=== PATIENT | male | born 1995 | race Caucasian/White ===

== ENCOUNTER 2023-01-05 16:00 | Outpatient (RCR) | payer OTHER, SELFPAY ==
--- NOTE | 2022-12-12 16:59 | HP.PTEVAL_ITS ---
Patient's Visit Information TFIFANIE HOPKINS is a 27 year old M referred to Physical Therapy by YANICK LeyC with a diagnosis of MUSCLE STRAIN OF RIGHT GLUTEAL REFGION. Date of Evaluation: 12/12/22 Physical Therapist: Amador Goodwin, PT, Cert MDT, OCS - Visit Plan Frequency: 2x /Week Duration: 4 Weeks Plan: PT INTERVETIONS SKINNY EX'S ,DLS ,POSTURAL EX'S ,ANR STRETCHING , MANUAL THERAPY AND MODALTIES PRN - Subjective This 27 y/o male presents to physical therapy with right gluteal strain. Patient strain right glut lifting day after thanks ,at home Lifting a small weight. Pain intense and actually fell to ground. Patient unable stand up thus crawled to bedroom. Patient seen DR next day ,difficulty to sit down to drive. Patient had injection and prednisone /muscle relaxer . Patient had same thing in 2018 with possible sciatica. Patient was traveling in [place]. Location right glut ,LS. Aggravating factors left leg swing ,bending ,lifting, sitting. Getting in/out of truck Alleviating factors medication. Patient condition affects QOL and job demands. Coughing/sneezing -. Denies paresthesia/tingling - . No abnormal night pain. x-rays - spine . VOCATION: manager of operations. SOCAIL: single - Pain Right Buttocks Pain Intensity (Out of 10): 4 Pain Intensity Range: 10 Comment: bending worse - Objective POSTURE: mild forward posture. GAIT: reciprocal pattern. SYMMTRIES: align. PALAPTION: unremarkable. NEURO: burning glut ,denies paresthesia/tingling ,reflexes L3-4 ,L4-5 2/2. MMT: right quads 4-/5 due to + ANR ,otherwise hip flexion/abduction/Glut maximums ,hamstring 4/5. LUMBAR ROM: flexion severe loss pain ,extension WNL ,side glides WFL. FLEXABLITY: hamstrings mod loss + ANR - Special Tests L/S Slump test left side: Negative L/S Slump test right side: Positive L/S Left Straight Leg Raise: Positive L/S Right Straight Leg Raise: Positive - Balance/Special Test Scores Oswestry Low Back Score: 26 - Goals Goal 1:: Patient to be I with HEP for lumbar Goal Time Frame: 4-6 Weeks Goal 2:: Patient to improve posture/body mechanics 100% and lifting Goal Time Frame: 4-6 Weeks Goal 3:: Patient to demonstrate 75% improvement with decrease pain and improved function Goal Time Frame: 4-6 Weeks Goal 4:: Patient resolve ANR to improve flexion to ties shoes Goal Time Frame: 4-6 Weeks Goal 5:: Patient improve lumbar ROM FOR function of recovery to improve lift. Goal Time Frame: 4-6 Weeks Goal 6:: Patient to improve back oswestry by 5 points to improve QOL and return to lfting - Rehabilitation Potential Physical Therapy Diagnosis: This patient appears to have derangement above knee with disc involvement with pain worse with flexion better with extension and correction of posture ,thus benefit from skilled PT Rehabilitation Potential: Good - Anticipated Interventions Patient/Client Instruction: Educate patient on: Condition, Plan of Care For the Purpose of:: To decrease pain, To increase ROM, To improve muscle performance and motor function, To improve ability to perform ADL's, To increase tolerance to activity/condition/position, To improve performance and in dependence with ADL's, To improve ability of physical actions for home/community/work/leisure, To improve health of tissue, To decrease soft tissue restriction, To increase flexibility/ROM, To prevent re-injury Therapeutic Exercise to Include: Strength training, Body mechanics, Postural training, Flexibilty training For the Purpose of:: To decrease pain, To decrease swelling/inflammation, To increase ROM, To improve nutrient delivery to tissue, To increase oxygenation perfusion, To improve muscle performance and motor function, To increase tole kaitlin to activity/condition/position, To improve ability of physical actions for home/community/work/leisure, To improve health of tissue, To decrease soft tissue restriction, To increase flexibility/ROM, To prevent re-injury Manual Therapy Techniques to Include: Mobilization Comment: LUMBAR For the Purpose of:: To decrease pain, To increase ROM, To improve nutrient delivery to tissue, To increase oxygenation perfusion, To improve health of tissue, To decrease soft tissue restriction TENS: Yes IF ES: Yes Cryotherapy (ice pack, ice massage): Yes Thermo therapy (hot pack): Yes Ultrasound (thermal/non thermal): Yes For the Purpose of:: To decrease pain, To decrease swelling/inflammation, To increase ROM, To improve nutrient delivery to tissue, To increase oxygenation perfusion, To improve health of tissue, To decrease soft tissue restriction Thank you for the opportunity to evaluate your patient. For Medicare and Medicare HMO plans, please review the plan of care and approve it. It will need to be FAXED BACK to us at [phone] for Medicare purposes. For Medicare only, by signing this I certify the plan of care. Please let me know if there are questions or concerns regarding this plan of care. Physician Signature: Date:
--- NOTE | 2023-06-07 13:32 | HP.PTDCSUM ---
Discharge Summary D/C summary: It has been my pleasure to treat TIFFANIE HOPKINS referred by Karen Sanchez NP-C, with the diagnosis of MUSCLE STRAIN OF RIGHT GLUTEAL REGION for a total of 6 visit(s). Discharge Date: Please see the following information for a summary of their discharge status. Subjective Subjective: Doing well Pain Right Buttocks: Pain Intensity (Out of 10): 0 Overall Improvement % Improvement: 90 Objective Objective/Function: Doing great with joe and advances core work RETURN FUNCTION OF RECOVERY NO PAIN FULL ROM LUMBAR Goals Goal 1:: Patient to be I with HEP for lumbar Goal 2:: Patient to improve posture/body mechanics 100% and lifting Goal 3:: Patient to demonstrate 75% improvement with decrease pain and improved function Goal 4:: Patient resolve ANR to improve flexion to ties shoes Goal 5:: Patient improve lumbar ROM FOR function of recovery to improve lift. Goal 6:: Patient to improve back oswestry by 5 points to improve QOL and return to lfting Plan Plan: D/C D/C Information d/c sentence: If there are questions or concerns regarding this patient's physical therapy, please feel free to call me at [phone]. Thank you for the referral of this patient. Sincerely, Amador Goodwin, PT, Cert MDT, OCS Balance/Gait/Functional tests Balance/Special Test Scores Oswestry Low Back Score: 0
== END 2023-01-05 19:00 | disposition home or self-care (01) ==
LOC: PT 16:00
PROVIDERS: Referring Provider Internal Medicine; Visit Provider Internal Medicine
DX: S76.011D Strain of muscle, fascia and tendon of right hip, subsequent encounter (principal)
CPT/HCPCS: 97110; 97162; 97530

== ENCOUNTER → 2025-10-31 | Outpatient (CLI) | payer OTHER, SELFPAY ==
--- OUTSIDE RECORDS SUMMARY | 2025-10-31 12:08 | XMS RPT_ITS | CCD ---
Author Organization [facility] Care Team Providers Care Apron Man Name Role Phone BEL PITTMAN Attending Unavailable Unavailable Primary Care Provider Unavailabl e Ble Pittman NP Referring Unavailable Bel Pittman NP Attending Unavailable Care Physician, No Primary Primary Care Unava ilable Medications Completed/Discontinued Medications Medication Drug Class(es) Dates Sig (Normalized) Sig (Original) budesonide/formote rol fumarate (SYMBICORT INHALATION) (1 source) End: 11-29-2022 budesonide/formoter ol fumarate (SYMBICORT INHALATION) Inhale 2 Inhalation as instructed as needed. 0 11/29/2022 Discontinued Comment on above: Inhale 2 Inhalation as instructed as needed. Problems Problem Classification Problem Date Documented Da te Episodic/Chronic Sprains and strains (1 source) Strain of muscle of lower limb; Translations: [Strain of muscle, fascia and tendon of right hip, initial encounter] Episodic Results Test Name Value Interpretation Reference Range Facil ity PT D/C Summary (1)on 023 PT D/C Summary (1) [facility] [address] [place] [address] [address] [place] [address] / REHABILITATION SERVICES DISCHARGE SUMMARY MR#: [id number] Acct: [id number] Name: RYAN HOPKINS Rep #: [id number] : 1995 27 From: Amador Goodwin PT, Cert. T, OCS Referring DrSamantha: JAZMYN Pittman Status: REG R CR Insurance: CIGNA SELF PAY INSURANCE Discharge Summary D/C summary: It has been my pleasure to treat RYAN HOPKINS referred by JAZMYN Ley, with the diagnosis of MUSCLE STRAIN OF RIGHT GLUTEAL REGION for a total of 6 visit(s). Discharge Date: Please see the following information for a summary of their discharge status. Subjective Subjective: Doing well Pain Right Buttocks: Pain Intensity (Out of 10): 0 Overall Improvement % Improvement: 90 Objective Objective/Function: Doing great with joe and advances core work RETURN FUNCTION OF RECOVERY NO PAIN FULL ROM LUMBAR Goals Goal 1:: Patient to be I with HEP for lumbar Goal 2:: Patient to improve posture/body mechanics 100% and lifting Goal 3:: Patient to demonstrate 75% improvement with decrease pain and improved function Goal 4:: Patient resolve ANR to improve flexion to ties shoes Goal 5:: Patient improve lumbar ROM FOR function of recovery to improve lift. Goal 6:: Patient to improve back oswestry by 5 points to improve QOL and return to lfting Plan Plan: D/C D/C Information d/c sentence: If there are questions or concerns regarding this patient's physical therapy, please feel free to call me at [phone]. Thank you for the referral of this patient. Sincerely, Amador Goodwin PT, Cert T, OCS Balance/Gait/Function al tests Balance/Special Test Scores Oswestry Low Back Score: 0 06/07/23 1336 CC: JAZMYN Pittman; No Primary Care Physician JLA Signed Normal [facility] Inital Evaluation (1) - PTon 12-12-2022 Inital Evaluation (1) - PT [facility] [address] [place] [address] [address] [place] [address] / REHABILITATION SERVICES INITIAL EVALUATION MR#: [id number] Acct: [id number] Name: RYAN HOPKINS Rep #: [id number] : 1995 27 From: Gabrielle Sharma PT. MD [place], OCS Referring Dr.: JAZMYN Pittman Status: REG R CR Insurance: CIGNA SELF PAY INSURANCE Patient's Visit Information RYAN HOPKINS is a 27 year old M referred to Physical Therapy by JAZMYN Ley with a diagnosis of MUSCLE STRAIN OF RIGHT GLUTEAL REFGION. Date of Evaluation: 12/12/22 Physical Therapist: Amador Androsik, PT, Cert MDT, OCS - Visit Plan Frequency: 2x /Week Duration: 4 Weeks Plan: PT INTERVETIONS JOE EX'S ,DLS ,POSTURAL EX'S ,ANR STRETCHING , MANUAL THERAPY AND MODALTIES PRN - Subjective This 27 y/o male presents to physical therapy with right gluteal strain. Patient strain right glut lifting day after thanksgiving ,at home Lifting a small weight. Pain intense and actually fell to ground. Patient unable stand up thus crawled to bedroom. Patient seen DR next day ,difficulty to sit down to drive. Patient had injection and prednisone /muscle relaxer . Patient had same thing in 2018 with possible sciatica. Patient was traveling in [place]. Location right glut ,LS. Aggravating factors left leg swing ,bending ,lifting, sitting. Getting in/out of truck Alleviating factors medication. Patient condition affects QOL and job demands. Coughing/sneezing -. Denies paresthesia/tingling - . No abnormal night pain. x-rays - spine . VOCATION: creative project manager. SOCAIL: single - Pain Right Buttocks Pain Intensity (Out of 10): 4 Pain Intensity Range: 10 Comment: bending worse - Objective POSTURE: mild forward posture. GAIT: reciprocal pattern. SYMMTRIES: align. PALAPTION: unremarkable. NEURO: burning glut ,denies paresthesia/tingling ,reflexes L3-4 ,L4-5 2/2. MMT: right quads 4-/5 due to + ANR ,otherwise hip flexion/abduction/Glu t maximums ,hamstring 4/5. LUMBAR ROM: flexion severe loss pain ,extension WNL ,side glides WFL. FLEXABLITY: hamstrings mod loss + ANR - Special Tests L/S Slump test left side: Negative L/S Slump test right side: Positive L/S Left Straight Leg Raise: Positive L/S Right Straight Leg Raise: Positive - Balance/Special Test Scores Oswestry Low Back Score: 26 - Goals Goal 1:: Patient to be I with HEP for lumbar Goal Time Frame: 4-6 Weeks Goal 2:: Patient to improve posture/body mechanics 100% and lifting Goal Time Frame: 4-6 Weeks Goal 3:: Patient to demonstrate 75% improvement with decrease pain and improved function Goal Time Frame: 4-6 Weeks Goal 4:: Patient resolve ANR to improve flexion to ties shoes Goal Time Frame: 4-6 Weeks Goal 5:: Patient improve lumbar ROM FOR function of recovery to improve lift. Goal Time Frame: 4-6 Weeks Goal 6:: Patient to improve back oswestry by 5 points to improve QOL and return to lfting - Rehabilitation Potential Physical Therapy Diagnosis: This patient appears to have derangement above knee with disc involvement with pain worse with flexion better with extension and correction of posture ,thus benefit from skilled PT Rehabilitation Potential: Good - Anticipated Interventions Patient/Client Instruction: Educate patient on: Condition, Plan of Care For the Purpose of:: To decrease pain, To increase ROM, To improve muscle performance and motor function, To improve ability to perform ADL's, To increase tolerance to activity/condition/po sition, To improve performance and independence with ADL's, To improve ability of physical actions for home/community/work/l eisure, To improve health of tissue, To decrease soft tissue restriction, To increase flexibility/ROM, To prevent re-injury Therapeutic Exercise to Include: Strength training, Body mechanics, Postural training, Flexibilty training For the Purpose of:: To decrease pain, To decrease swelling/inflammation , To increase ROM, To improve nutrient delivery to tissue, To increase oxygenation perfusion, To improve muscle performance and motor function, To increase tolerance to activity/condition/po sition, To improve ability of physical actions for home/community/work/l eisure, To improve health of tissue, To decrease soft tissue restriction, To increase flexibility/ROM, To prevent re-injury Manual Therapy Techniques to Include: Mobilization Comment: LUMBAR For the Purpose of:: To decrease pain, To increase ROM, To improve nutrient delivery to tissue, To increase oxygenation perfusion, To improve health of tissue, To decrease soft tissue restriction TENS: Yes IF ES: Yes Cryotherapy (ice pack, ice massage): Yes Thermo therapy (hot pack): Yes Ultrasound (thermal/non thermal): Yes For the Purpose of:: To decrease pain, To decrease swelling/ (more content not included)... [facility] CNOVon 11-29-2022 CNOV Office Visit (INTMWS ) RYAN HOPKINS ([id number]) 1995 M Date Time Provider Department 11/29/22 3:20 PM BEL PITTMAN During your visit today, we recorded the following information about you: Pulse Blood pressure Weight 83/minute 110/76 92.1 kg Bel Pittman APRN.LEARNING SERVICES COORDINATOR 11/29/2022 3:43 PM Signed SUBJECTIVE Ryan Hopkins is a 27 year old male here today for acute concern. Chief Complaint Patient presents with: urgent care follow up: states power lifting the day after and was lifting a weight and states his right buttock clenched up and was unable to move. Was able to get himself home and about 2-3 days later he was seen in UC and was prescribed predisone and muscle relaxer HPI Ryan Hopkins is an 27 year old male presents today to establish care, concerns of a possible pulled muscle. No medical history, no daily medicines. 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 Desdemona his right side tighten up. This occurred the day after . Muscle was tight and would not release, could not walk. Went to Urgent Care the following day. Had what sounds like Toradol, prednisone, muscle relaxer. Xray was normal. Wondering if he is having some sciatica or aggravated a nerve. Still feeling muscle tightness. Denies low back issues, pain all over right side of upper buttock, radiates down right leg at times, only in the right. Possibly feeling some weakness but may be due to being more reserved with his movements. Denies numbness, tingling and no mention of bowel or bladder difficulties/leaking/ loss of control. Tried heat application for a short time, took motrin for a short time. His medications were reviewed today and his list is now up to date. Medications No current outpatient medications on file. No current facility-administered medications for this visit. ALLERGIES No Known Allergies There is no problem list on file for this patient. Social History Tobacco Use Smoking status: Never Smokeless tobacco: Former Review of Systems Musculoskeletal: Positive for gait problem and myalgias. Negative for arthralgias, back pain, joint swelling, neck pain and neck stiffness. OBJECTIVE BP 110/76 Pulse 83 Wt 203 lb (92.1kg) SpO2 98% Physical Exam Vitals and nursing note reviewed. Constitutional: General: He is awake. He is not in acute distress. Appearance: He is well-developed and well-groomed. He is not ill-appearing, toxic-appearing or diaphoretic. Cardiovascular: Pulses: Normal pulses. Pulmonary: Effort: Pulmonary effort is normal. Musculoskeletal: Right hip: Tenderness (to gluteus medius area) present. No deformity, lacerations, bony tenderness or crepitus. Decreased range of motion (due to discomfort). Normal strength. Left hip: Normal. Skin: General: Skin is warm and dry. Capillary Refill: Capillary refill takes less than 2 seconds. Neurological: General: No focal deficit present. Mental Status: He is alert and oriented to person, place, and time. Mental status is at baseline. Psychiatric: Mood and Affect: Mood normal. Behavior: Behavior normal. Behavior is cooperative. Thought Content: Thought content normal. Judgment: Judgment normal. ASSESSMENT/PLAN: 1. Muscle strain of right gluteal region, initial encounter - ICD9: 843.8, ICD10: S76.011A Suspect a pretty severe muscle strain. He has been doing some rest, heat application, NSAIDs, was on prednisone, muscle relaxer with little help. Will refer to PT to isolate the problem area. Could consider MRI if persistent or worsening symptoms. - CONSULT TO PHYSICAL THERAPY Portions of this note have been entered by ancillary staff. I have reviewed and when necessary edited, so that they are an adequate record of my encounter with this patient Please note that parts of this document were created using voice recognition software and therefore may contain grammatical errors. Patient verbalizes understanding of instructions from today's visit and in agreement with treatment plan. Questions answered. Agrees to call the office if questions, concerns of issues with acute symptoms not improving or if they worsen. Return if symptoms worsen or fail to improve. Bel Pittman APRN-LEARNING SERVICES COORDINATOR Allergies As of Date: 11/29/2022 (No Known Allergies) Date Reviewed: 11/29/2022 Reviewed by: Bel Pittman APRN.LEARNING SERVICES COORDINATOR - Fully Assessed Reason for Visit: urgent care follow up [Other] Cmt: states power lifting the day after Thanksgiving and was lifting a weight and states his right buttock clenched up and was unable to move. Was able to get himself home and about 2-3 days later he was seen in UC and was prescribed predisone and muscle relaxer Primary Visit Diagnosis:Muscle strain of right gluteal region, initial encounter [S76.011A] Order(s):CONSULT TO PHYSICAL THERAPY [9032 (more content not included)... Normal [facility] Vital Signs Date Time Vital Sign Value Performing Clinician Ward kenney 11-29-2022 15:12-0500 Body weight 92.08 kg Bel Pittman AOC OPERATIONS INTELLIGENCE OFFICER.CN P Work Phone: [facility] 11-29-2022 15:12-0500 Diastolic blood pressure 76 mm[Hg] Bel Amator AOC OPERATIONS INTELLIGENCE OFFICER.LEARNING SERVICES COORDINATOR Work Phone: [facility] 11-29-2022 15:12-0500 Heart rate 83 /min Bel Amator AOC OPERATIONS INTELLIGENCE OFFICER.CN P Work Phone: [facility] 11-29-2022 15:12-0500 SaO2% (BldA) [Mass fraction] 98 % Bel Amator AOC OPERATIONS INTELLIGENCE OFFICER.LEARNING SERVICES COORDINATOR Work Phone: [facility] 11-29-2022 15:12-0500 Systolic blood pressure 110 mm[Hg] Bel Amator AOC OPERATIONS INTELLIGENCE OFFICER.LEARNING SERVICES COORDINATOR Work Phone: [facility] Encounters Encounter Date Encounter Type Care Provider Facility Start: 01-05-2023 End: 01-05-2023 ambulatory Bel Pittman CREDENTIALING MANAGER Facility:[facility] Start: 11-29-2022 End: 11-29-2022 ambulatory BEL PITTMAN Facility:[facility] Start: 11-29-2022 End: 11-29-2022 Patient encounter procedure Bel Pittman AOC OPERATIONS INTELLIGENCE OFFICER.LEARNING SERVICES COORDINATOR Work Phone: [facility] [place] Comment on above: Muscle strain of rig ht gluteal region, initial encounter (Primary Dx) Plan of Treatment Date Care Activity Detail Author Start: 11-27-2022 DEPRESSION ASSESSMENT DEPRESSION ASS ESSMENT [facility] Start: 07-28-2022 Influenza vaccination INFLUENZA (#1) [facility] Start: 2013 Urine microalbumin profile DTAP,TDAP ,TD (1 - Tdap) [facility] Start: 2012 HEPATITIS C SCREENING HEPATITIS C SC CRISTO [facility] Start: 2012 HIV SCREENING HIV SCREENING [facility] Start: 02-09-1995 COVID-19 VACCINE (#1) COVID-19 VACCI NE (#1) [facility] Start: 1994 HEPATITIS B (1 of 3 - 3-dose series) HEPATITIS B (1 of 3 - 3-dose series) [facility] Payers Date Payer Category Payer Self-pay 2021 Private Health Insurance [id number] 2021 Private Health Insurance [employer] C [employer] OAP [id number] 2021-Present [phone] [address] [place] [address] Open Access [id number] Unknown [id number] Social History Date Type Detail Facility Start: 11-29-2022 [facility] Work Phone: Start: 11-29-2022 Tobacco use and exposure Former smokeless tobacco user [facility] Work Phone: Start: 1995 Sex Assigned At Not on file [facility] Start: 1995 Sex Assigned At Male W [facility] Progress note 11-29-2022 Note Date & Type Note Facility 11-29-2022 Note HNO ID: [id number] Author: Bel Pittman APRN.LEARNING SERVICES COORDINATOR Service: ? Author Type: Nurse Practitioner Type: Progress Notes Filed: 11/29/2022 3:43 PM Note Text: ADALBERTO Hopkins is a 27 year old male here today for acute concern. Chief Complaint Patient presents with: urgent care follow up: states power lifting the day after Thanksgiving and was lifting a weight and states his right buttock clenched up and was unable to move. Was able to get himself home and about 2-3 days later he was seen in UC and was prescribed predisone and muscle relaxer HPI Ryan Hopkins is an 27 year old male presents today to establish care, concerns of a possible pulled muscle. No medical history, no daily medicines. 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 Desdemona his right side tighten up. This occurred the day after Thanksgiving. Muscle was tight and would not release, could not walk. Went to Urgent Care the following day. Had what sounds like Toradol, prednisone, muscle relaxer. Xray was normal. Wondering if he is having some sciatica or aggravated a nerve. Still feeling muscle tightness. Denies low back issues, pain all over right side of upper buttock, radiates down right leg at times, only in the right. Possibly feeling some weakness but may be due to being more reserved with his movements. Denies numbness, tingling and no mention of bowel or bladder difficulties/leaking/loss of control. Tried heat application for a short time, took motrin for a short time. His medications were reviewed today and his list is now up to date. Medications No current outpatient medications on file. No current facility-administered medications for this visit. ALLERGIES No Known Allergies There is no problem list on file for this patient. Social History Tobacco Use Smoking status: Never Smokeless tobacco: Former Review of Systems Musculoskeletal: Positive for gait problem and myalgias. Negative for arthralgias, back pain, joint swelling, neck pain and neck stiffness. OBJECTIVE BP 110/76 Pulse 83 Wt 203 lb (92.1kg) SpO2 98% Physical Exam Vitals and nursing note reviewed. Constitutional: General: He is awake. He is not in acute distress. Appearance: He is well-developed and well-groomed. He is not ill-appearing, toxic-appearing or diaphoretic. Cardiovascular: Pulses: Normal pulses. Pulmonary: Effort: Pulmonary effort is normal. Musculoskeletal: Right hip: Tenderness (to gluteus medius area) present. No deformity, lacerations, bony tenderness or crepitus. Decreased range of motion (due to discomfort). Normal strength. Left hip: Normal. Skin: General: Skin is warm and dry. Capillary Refill: Capillary refill takes less than 2 seconds. Neurological: General: No focal deficit present. Mental Status: He is alert and oriented to person, place, and time. Mental status is at baseline. Psychiatric: Mood and Affect: Mood normal. Behavior: Behavior normal. Behavior is cooperative. Thought Content: Thought content normal. Judgment: Judgment normal. ASSESSMENT/PLAN: 1. Muscle strain of right gluteal region, initial encounter - ICD9: 843.8, ICD10: S76.011A Suspect a pretty severe muscle strain. He has been doing some rest, heat application, NSAIDs, was on prednisone, muscle relaxer with little help. Will refer to PT to isolate the problem area. Could consider MRI if persistent or worsening symptoms. - CONSULT TO PHYSICAL THERAPY Portions of this note have been entered by ancillary staff. I have reviewed and when necessary edited, so that they are an adequate record of my encounter with this patient Please note that parts of this document were created using voice recognition software and therefore may contain grammatical errors. Patient verbalizes understanding of instructions from today's visit and in agreement with treatment plan. Questions answered. Agrees to call the office if questions, concerns of issues with acute symptoms not improving or if they worsen. Return if symptoms worsen or fail to improve. Bel Pittman APRN-LEARNING SERVICES COORDINATOR [facility] History of Present illness Narrative 11-29-2022 Bel Pittman APRN.NINA - 11/29/2022 3:17 PM EST Note Date & Type Note Facility 11-29-2022 History of Presen t illness Narrative SUBJECTIVE Ryan Hopkins is a 27 year old male here today for acute concern. Chief Complaint Patient presents with: urgent care follow up: states power lifting the day after and was lifting a weight and states his right buttock clenched up and was unable to move. Was able to get himself home and about 2-3 days later he was seen in UC and was prescribed predisone and muscle relaxer HPI Ryan Hopkins is an 27 year old male presents today to establish care, concerns of a possible pulled muscle. No medical history, no daily medicines. 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 Desdemona his right side tighten up. This occurred the day after . Muscle was tight and would not release, could not walk. Went to Urgent Care the following day. Had what sounds like Toradol, prednisone, muscle relaxer. Xray was normal. Wondering if he is having some sciatica or aggravated a nerve. Still feeling muscle tightness. Denies low back issues, pain all over right side of upper buttock, radiates down right leg at times, only in the right. Possibly feeling some weakness but may be due to being more reserved with his movements. Denies numbness, tingling and no mention of bowel or bladder difficulties/leaking/loss of control. Tried heat application for a short time, took motrin for a short time. His medications were reviewed today and his list is now up to date. Medications No current outpatient medications on file. No current facility-administered medications for this visit. ALLERGIES No Known Allergies There is no problem list on file for this patient. Social History Tobacco Use Smoking status: Never Smokeless tobacco: Former Review of Systems Musculoskeletal: Positive for gait problem and myalgias. Negative for arthralgias, back pain, joint swelling, neck pain and neck stiffness. OBJECTIVE BP 110/76 Pulse 83 Wt 203 lb (92.1kg) SpO2 98% Physical Exam Vitals and nursing note reviewed. Constitutional: General: He is awake. He is not in acute distress. Appearance: He is well-developed and well-groomed. He is not ill-appearing, toxic-appearing or diaphoretic. Cardiovascular: Pulses: Normal pulses. Pulmonary: Effort: Pulmonary effort is normal. Musculoskeletal: Right hip: Tenderness (to gluteus medius area) present. No deformity, lacerations, bony tenderness or crepitus. Decreased range of motion (due to discomfort). Normal strength. Left hip: Normal. Skin: General: Skin is warm and dry. Capillary Refill: Capillary refill takes less than 2 seconds. Neurological: General: No focal deficit present. Mental Status: He is alert and oriented to person, place, and time. Mental status is at baseline. Psychiatric: Mood and Affect: Mood normal. Behavior: Behavior normal. Behavior is cooperative. Thought Content: Thought content normal. Judgment: Judgment normal. ASSESSMENT/PLAN: 1. Muscle strain of right gluteal region, initial encounter - ICD9: 843.8, ICD10: S76.011A Suspect a pretty severe muscle strain. He has been doing some rest, heat application, NSAIDs, was on prednisone, muscle relaxer with little help. Will refer to PT to isolate the problem area. Could consider MRI if persistent or worsening symptoms. - CONSULT TO PHYSICAL THERAPY Portions of this note have been entered by ancillary staff. I have reviewed and when necessary edited, so that they are an adequate record of my encounter with this patient Please note that parts of this document were created using voice recognition software and therefore may contain grammatical errors. Patient verbalizes understanding of instructions from today's visit and in agreement with treatment plan. Questions answered. Agrees to call the office if questions, concerns of issues with acute symptoms not improving or if they worsen. Return if symptoms worsen or fail to improve. Bel Pittman APRN-NINA documented in this encounter [facility] Evaluation note Note Date & Type Note Facility Evaluation note Diagnosis Muscle strain of right gluteal region, initial encounter- Primary documented in this encounter [facility] Evaluation note Note Date & Type Note Facility Evaluation note No assessment information availa [facility] Work Phone: Summary Purpose Family History No Family History Records FoundNo Family History Records Found Advance Directives No Advanced Directives Records FoundNo Advanced Directives Records Found Reason for Referral Specialty Diagnoses / Procedures Referred By Fannie quintanilla Referred To Contact [facility] Diagnoses Muscle strain of right gluteal region, initial encounter Procedures CONSULT TO PHYSICAL THERAPY PHYSICAL THERAPY EVALUATION HIGH COMPLEX 45 MINS Bel Pittman APRN.CNP [address] [place] [address] [facility] [place] [address] [place] [id number] Referral ID Status Reason Start Date Expiration Date Visits Requested Visits Authorized [id number] Pending Review Auto-Generat ed Referral 11/29/2022 11/29/2023 1 1 Additional Source Comments (unrecognized sect ion and content) No Status Records FoundNo Status Records Found INFORMATION SOURCE (unrecogn ized section and content) DATE CREATED AUTHOR 11/29/2022 [facility] DATE CREATED AUTHOR AUTHOR'S ORGANIZ ATION 06/08/2023 [facility] Source Comments (unrecognize d section and content) In the event this informatio n is protected by the Federal Confidentiality of Alcohol and Drug Abuse Patient Records regulations: The Federal rules restrict any use of the information to criminally investigate or prosecute any alcohol or drug abuse patient.[facility] Reason for Visit (unrecogniz ed section and content) Reason Comments urgent care follow up states power liftmagdalena ng the day after Thanksgiving and was lifting a weight and states his right buttock clenched up and was unable to move. Was able to get himself home and about 2-3 days later he was seen in UC and was prescribed predisone and muscle relaxer Goals (unrecognized section and content) Goals may be documented in a n alternate section FOR RECORDS PERTAINING TO PATIENTS WHO ARE OR HAVE BEEN ENROLLED IN A CHEMICAL DEPENDENCY/SUBSTANCEABUSE PROGRAM, SOME INFORMATION MAY BE OMITTED. This clinical summary was aggregated from multiple sources. Caution should be exercised in using it in the provision of clinical care. This summary normalizes information from multiple sources, and as a consequence, information in this document may materially change the coding, format and clinical context of patient data. In addition, data may be omitted in some cases. CLINICAL DECISIONS SHOULD BE BASED ON THE PRIMARY CLINICAL RECORDS. [employer] [facility]. provides no warranty or guarantee of the accuracy or completeness of information in this document.
[2025-10-31 14:10] LABS: AST(SGOT) 21 U/L (<=37); Alanine Aminotransfer ALT/SGPT 21 U/L (<=46); Albumin, Serum 4.5 g/dL (3.5-5.0); Alkaline Phosphatase 59 U/L (40-129); Anion Gap 10 (5-15); BUN 18 mg/dL (4-19); BUN/Creat Ratio 16.1 RATIO (10-20); CRP < 3.00 mg/L (0.0-3.0); Calcium,Total 9.5 mg/dL (7.6-11.0); Carbon Dioxide 28.0 mmol/L (21.0-32.0); Chloride 103 mmol/L (98-108); Globulin 2.8 g/dL (2.2-4.2); Glucose 84 mg/dL (70-99); Potassium 3.8 mmol/L (3.3-5.1)
== END | disposition home or self-care (01) ==
LOC: VSLAB 11:49
DX: R07.9 Chest pain, unspecified (principal)
CPT/HCPCS: 36415; 80053; 86140